=== PATIENT | female | born 1985 | race Caucasian/White ===

== ENCOUNTER 2018-08-05 13:13 | Emergency (ER) | payer BC, SELFPAY ==
[2018-08-05 13:32] VITALS: BP 107/74; PULSE 77; RESP 18; TEMP 36.7; O2SAT 98
--- NOTE | 2018-08-05 15:28 | PC.NURSE ---
Dime sized lesion with redness measuring about 4cm around.
--- NOTE | 2018-08-05 17:00 | ED.SKABFB ---
HPI - Skin/Abscess/Foreign Bdy <KEON Lau - Last Filed: 08/05/18 22:42> General Chief complaint: Skin/Abscess/Foreign Body Stated complaint: BOIL ON STOMACH Time Seen by Provider: 08/05/18 16:36 Source: patient Mode of arrival: ambulatory Limitations: no limitations History of Present Illness HPI narrative: Patient is a 32-year-old female current everyday smoker with history of drug and alcohol abuse who presents with a chief complaint of a boil on her stomach. she was seen at [facility] a few days ago was started on Keflex. She states that the redness around it has been getting worse and has been getting increasingly painful. Thus she is concerned she needs a different antibiotic. She complains of some chills but denies any fever. She states she has been staying home from her drug and alcohol rehab because of the pain of her boil. she has no nausea no vomiting. She has not taken anything for pain including Tylenol or ibuprofen. Related Data Home Medications Medication Instructions Recorded Confirmed cephalexin 1,000 mg PO BIDX10 08/05/18 08/05/18 fluoxetine 40 mg PO DAILY 08/05/18 08/05/18 fluticasone propionate [Flovent 1 puff INHALATION BID 08/05/18 08/05/18 HFA] prazosin 1 mg PO DAILY 08/05/18 08/05/18 quetiapine 100 mg PO DAILY 08/05/18 08/05/18 sumatriptan succinate 100 mg PO PRN PRN 08/05/18 08/05/18 venlafaxine 37.5 mg PO DAILY 08/05/18 Previous Rx's Medication Instructions Recorded doxycycline hyclate 100 mg PO BID #20 tab 08/05/18 Allergies Allergy/AdvReac Type Severity Reaction Status Date / Time medroxyprogesterone Allergy Mild Verified 08/05/18 15:35 [From Depo-Provera] Penicillins Allergy Mild Verified 08/05/18 15:34 Review of Systems <KEON Lau - Last Filed: 08/05/18 22:42> Review of Systems GENERAL: Denies chills, fatigue, malaise, fever, sweats. HEENT: Denies sinus pain, ear pain, sore throat, difficulty swallowing, dizziness. RESPIRATORY: Denies dyspnea, cough, wheezing, hemoptysis, sputum. CARDIOVASCULAR: Denies chest pain, palpitations, orthopnea, edema, GASTROINTESTINAL: Denies nausea, vomiting, abdominal pain, diarrhea, constipation, melena. : Denies dysuria, frequency, incontinence, hematuria, urinary retention. MUSCULOSKELETAL: denies weakness, joint pain, or bony pain SKIN: See HPI NEUROLOGIC: Denies weakness, headache, numbness, change in speech, confusion, seizures, incoordination. PSYCHIATRIC: No concerning psychosocial issues. 12 point review of systems is negative except for those stated above PFSH <KEON Lau - Last Filed: 08/05/18 22:42> Social History Smoking Status: Current every day smoker Social History Smoking Status: Current every day smoker Exam <KEON Lau - Last Filed: 08/05/18 22:42> Narrative Exam Narrative: GENERAL: This is a well-nourished, well-developed patient, layying on side HEAD: Atraumatic. Normocephalic. No temporal or scalp tenderness. EYES: Pupils equal round and reactive. Extraocular motions intact. No scleral icterus. No injection or drainage. ENT: Nose without bleeding, purulent drainage or septal hematoma. Throat without erythema, tonsillar hypertrophy or exudate. Uvula midline. Airway patent. NECK: Trachea midline. No JVD or lymphadenopathy. Supple, nontender, no meningeal signs. CARDIOVASCULAR: Regular rate and rhythm without murmurs, gallops, or rubs. RESPIRATORY: Clear to auscultation. Breath sounds equal bilaterally. No wheezes, rales, or rhonchi. GASTROINTESTINAL: Abdomen soft, non-tender, nondistended. No hepato-splenomegaly, or palpable masses. No guarding. EXTREMITIES: No clubbing, cyanosis, or edema. No joint tenderness, effusion, or edema noted. BACK: Nontender without deformity or crepitance. No flank tenderness. NEURO: AOx3. SKIN: 4 cm of erythema on abdomen to right of umbilicus. No palpable fluctuance. 4 mm area pustule in the center. No obvious drainage. Initial Vital Signs Initial Vital Signs: Vital Signs Temperature 98.1 F 08/05/18 13:32 Pulse Rate 77 08/05/18 13:32 Respiratory Rate 18 08/05/18 13:32 Blood Pressure 107/74 08/05/18 13:32 Pulse Oximetry 98 08/05/18 13:32 <Moy Coughlin DO - Last Filed: 08/13/18 23:53> Initial Vital Signs Initial Vital Signs: Vital Signs Temperature 98.1 F 08/05/18 13:32 Pulse Rate 77 08/05/18 13:32 Respiratory Rate 18 08/05/18 13:32 Blood Pressure 107/74 08/05/18 13:32 Pulse Oximetry 98 08/05/18 13:32 Course <KEON Lau - Last Filed: 08/05/18 22:42> Vital Signs - 8 hr 08/05/18 17:14 Pulse Rate 71 Respiratory Rate 20 Blood Pressure 102/76 Pulse Oximetry 98 <Moy Coughlin DO - Last Filed: 08/13/18 23:53> Vital Signs - 8 hr 08/05/18 17:14 Pulse Rate 71 Respiratory Rate 20 Blood Pressure 102/76 Pulse Oximetry 98 MDM - Skin/Abscess/Foreign Bdy <KEON Lau - Last Filed: 08/05/18 22:42> MDM Narrative Medical decision making narrative: The patient is a 32-year-old female who presents with a small abscess and surrounding erythema. I do not feel a palpable fluctuance Katalina M unable to drain anything at this point time. She was started on cephalexin 3 days ago. However I will expand her coverage to include MRSA with doxycycline. She is afebrile in the emergency department. She is not tachycardic, normotensive and nontoxic appearing. She declined Tylenol and ibuprofen for the pain. I encouraged her to follow up with primary care provider in the next few days as well as monitor for signs of systemic illness and be evaluated if any of these occur. A wound culture was obtained. No questions or concerns upon discharge. Discharge Plan Departure Patient Disposition: Home Clinical Impression: Abscess Cellulitis Qualifiers: Site of cellulitis: trunk Site of cellulitis of trunk: abdominal wall Qualified Code(s): L03.311 - Cellulitis of abdominal wall Discharge Date/Time: 08/05/18 17:15 Interventions: ED Discharge Assessment Last Done: 08/05/18 17:14 Instructions: DI for Cellulitis -- Adult, DI for Skin Abscess Activity Restrictions/Additional Instructions: I am adding doxycycline to her antibiotic regimen. Please use sun screen with this. Monitor for inability keep down fluids, spreading or worsening. Please be evaluated if you becomes sicker or develops fevers. Please follow up with primary care provider soon as possible. Prescriptions: New doxycycline hyclate 100 mg tablet 100 mg PO BID Qty: 20 RF: 0 No Action venlafaxine 37.5 mg capsule,extended release 24hr 37.5 mg PO DAILY RF: 0 sumatriptan succinate 100 mg tablet 100 mg PO PRN PRN (Reason: Migraine Headache) RF: 0 prazosin 1 mg capsule 1 mg PO DAILY RF: 0 fluoxetine 20 mg tablet 40 mg PO DAILY RF: 0 cephalexin 500 mg tablet 1,000 mg PO BIDX10 RF: 0 Flovent HFA 110 mcg/actuation HFA aerosol inhaler 1 puff Inhalation BID RF: 0 quetiapine 50 mg tablet 100 mg PO DAILY RF: 0 <Moy Coughlin, - Last Filed: 08/13/18 23:53> [facility] Attestation: I was immediately available in the department for consultation. Documentation has been reviewed. I agree with assessment and plan.
[2018-08-05 17:14] VITALS: BP 102/76; PULSE 71; RESP 20; O2SAT 98
== END 2018-08-05 17:15 | disposition home or self-care (01) ==
PROVIDERS: Emergency Provider Nurse Practitioner Family
DX: L02.211 Cutaneous abscess of abdominal wall (principal); L03.311 Cellulitis of abdominal wall
CPT/HCPCS: 99282; 99283

== ENCOUNTER 2018-09-28 20:09 | Emergency (ER) | payer BC, SELFPAY ==
[2018-09-28 20:10] VITALS: BP 116/74; PULSE 67; RESP 14; TEMP 36.5; O2SAT 100; BMI 33.2
--- NOTE | 2018-09-28 20:44 | DI.RAD.S_ITS ---
PROCEDURE: XR RIBS RT MIN 3V W CXR 1V INDICATIONS: Right lateral rib pain TECHNIQUE: 3 views of the right ribs were acquired, along with a single view chest. COMPARISON: None. FINDINGS: Surgical changes and devices: Port-A-Cath is present with distal tip projecting over the mid SVC. Cholecystectomy clips. Bones and chest wall: No fractures or dislocations. No suspicious bony lesions. Overlying soft tissues appear unremarkable. Lungs and pleura: No pleural effusions or pneumothorax. Lungs appear clear. Mediastinum: Mediastinal contours appear normal. Heart size is normal. IMPRESSION: No visualized acute fracture or dislocation. However, if clinical concern and/or pain persist, short interval imaging followup in 7-10 days is recommended, as occult injury cannot be definitively excluded. Dictated by: Anastasiia Winters M.D. on 09/28/2018 at 21:01 Approved by: Anastasiia Winters M.D. on 09/28/2018 at 21:01
--- NOTE | 2018-09-28 20:48 | ED_ITS ---
HPI - Chest Pain General Chief Complaint: Chest Pain Stated Complaint: CHEST PAIN RT ARM NUMBNESS KIDNEY INFECTION Time Seen by Provider: 09/28/18 20:22 Source: patient Mode of arrival: ambulatory Limitations: no limitations History of Present Illness HPI narrative: The patient developed right lateral rib pain about 2 hours ago. She has no cough, she has had no trauma. She has increased discomfort with breathing deeply. She has no hemoptysis. Pain is focused to the right anterior/lateral ribs. She has no prior injury at the site. She does have back pain. She has been experiencing UTI symptoms for over a week. She was most recently started on Macrobid, she was previously on Keflex. The last medication was initiated after an ER visit to a different hospital/ER. She has had no call back regarding sensitivities from the culture. She also has a history of left kidney stone. She denies left abdominal pain. She denies hematuria. She is having no fever or chills. She also has no productive cough. She is not a cigarette smoker. She has no history of asthma. Related Data Home Medications Medication Instructions Recorded Confirmed cephalexin 1,000 mg PO BIDX10 08/05/18 08/05/18 fluoxetine 40 mg PO DAILY 08/05/18 08/05/18 fluticasone propionate [Flovent 1 puff INHALATION BID 08/05/18 08/05/18 HFA] prazosin 1 mg PO DAILY 08/05/18 08/05/18 quetiapine 100 mg PO DAILY 08/05/18 08/05/18 sumatriptan succinate 100 mg PO PRN PRN 08/05/18 08/05/18 venlafaxine 37.5 mg PO DAILY 08/05/18 Previous Rx's Medication Instructions Recorded doxycycline hyclate 100 mg PO BID #20 tab 08/05/18 Allergies Allergy/AdvReac Type Severity Reaction Status Date / Time medroxyprogesterone Allergy Mild Verified 08/05/18 15:35 [From Depo-Provera] Penicillins Allergy Mild Verified 08/05/18 15:34 ondansetron [From Zofran] AdvReac Severe Vomiting Verified 09/28/18 20:32 Review of Systems Review of Systems ROS Unobtainable: All systems reviewed & are unremarkable except as noted in HPI and below Constitutional Denies chills, Denies fever(s), Denies lethargy and Denies weakness ENT Ears, Nose, Mouth, and Throat: Denies nasal congestion, Denies neck pain and Denies sore throat Cardiovascular Reports chest pain (Right chest), Denies irregular heart rhythm, Denies lightheadedness, Denies palpitations, Denies dyspnea and Denies orthopnea Respiratory Denies cough, Denies dyspnea and Denies wheezing Gastrointestinal Gastrointestinal: Denies abdominal pain, Denies change in bowel habits, Denies diarrhea, Denies nausea and Denies vomiting Genitourinary Denies hematuria, Denies dysuria, Denies flank pain and Denies urinary urgency Musculoskeletal Reports back pain and Denies neck pain Integumentary/Breasts Denies erythema and Denies rash Neurologic Denies weakness Endocrine Denies palpitations Allergic/Immunologic Denies wheezing [facility] Medical History Depression (Acute) Frequent headaches (Acute) Surgical History (Updated 09/29/18 @ 03:06 by Emmanuel Ludwig MD) No pertinent past surgical history (Acute) Social History (Updated 09/29/18 @ 03:07 by Emmanuel Ludwig MD) Smoking Status: Never smoker Social History (Updated 09/29/18 @ 03:07 by Emmanuel Ludwig MD) Smoking Status: Never smoker Exam Initial Vital Signs Initial Vital Signs: Vital Signs Temperature 97.7 F 09/28/18 20:10 Pulse Rate 67 09/28/18 20:10 Respiratory Rate 14 09/28/18 20:10 Blood Pressure 116/74 09/28/18 20:10 Pulse Oximetry 100 09/28/18 20:10 Const General: cooperative and well developed Nutritional Appearance: well nourished Orientation: alert, awake, oriented x3 and not confused [facility] Head: normocephalic and atraumatic Ears: external ears normal and TM's normal bilaterally Nose: external nose normal and No nasal discharge Face and sinus: sinuses nontender, face symmetric, no sinus tenderness and No dry mucous membranes Mouth: oral mucosae normal and moist mucous membranes Teeth and gingiva: dentition normal Throat: tonsils normal and uvula midline Eyes General: appearance normal, both eyes and all related structures Eyelids: eyelids normal Conjunctivae: conjunctivae normal Sclera: sclerae normal Pupils: PERRL EOM: EOM intact bilaterally Neck Neck: normal visual inspection, trachea midline, No lymphadenopathy, No midline deformity and No JVD Lymphatic: No lymphedema Chest Chest: normal inspection of the chest, No crepitus and localized rib tenderness with anteroposterior compression Resp Effort & Inspection: normal respiratory effort and able to speak in complete sentences Auscultation: clear to auscultation bilaterally, no rales, no rhonchi and no wheezes Cardio Rate: regular rate Rhythm: regular rhythm Heart Sounds: no click, no gallops, no murmurs and no rubs Pulses: normal peripheral pulses GI Inspection: non-distended Palpation: soft, no hepatosplenomegaly, No guarding, No pulsatile mass and No tender Auscultation: normal bowel sounds Back/Spine/Pelvis Back: No CVA tenderness Cervical Spine: cervical ROM normal Thoracic/Lumbar Spine: thoracic and lumbar spine normal to inspection and other (Tenderness in the area of the right kidney, not obvious CVAT) Skin General: no rashes or lesions noted, No jaundice and No petechiae Neuro General: alert, oriented x3, gait normal and no focal motor deficits Speech: speech normal Extrem General: full ROM, no pedal edema and no calf tenderness Course Course Narrative: The patient was started on ibuprofen for chest wall pain and back pain prior to discharge. Orders Ordered: ED Orders 09/28/18 20:44 XR ribs RT min 3V w CXR1V Stat 09/28/18 21:30 Comprehensive Metabolic Panel Stat Lipase Stat 09/28/18 21:39 Urine Microscopic Stat 09/28/18 21:55 Complete Blood Count AUTO DIFF Stat Vital Signs - 8 hr 09/29/18 00:40 09/29/18 01:04 09/29/18 02:27 Pulse Rate 74 63 63 Respiratory Rate 14 14 16 Blood Pressure [Left Arm] 116/76 123/86 116/80 Pulse Oximetry 97 100 94 09/29/18 03:00 Pulse Rate 65 Respiratory Rate 16 Blood Pressure [Left Arm] 110/78 Pulse Oximetry 100 MDM - Chest Pain Lab Data Result diagrams: 09/28/18 21:55 09/28/18 21:30 Lab Results 09/28/18 09/28/18 09/28/18 Range/Units 21:30 21:39 21:55 WBC 8.8 (4.5-11.0) X10^3/uL RBC 4.40 (4.0-5.2) X10^6/uL Hgb 13.1 (12.0-16.0) g/dL Hct 37.9 (36-46) % MCV 86.0 (80-100) fL MCH 29.7 (26-34) PG MCHC 34.5 (30-36) % RDW 13.0 (11.6-14.8) % Plt Count 233 (150-400) X10^3/uL Neut % (Auto) 57.6 (50-75) % Lymph % (Auto) 34.0 (25-40) % [place] % (Auto) 5.4 (3-14) % Eos % (Auto) 2.2 (2-4) % Baso % (Auto) 0.8 (0-2) % Neut # (Auto) 5000 (0242-3325) /uL Lymph # (Auto) 3000 (4233-6935) /uL [place] # (Auto) 500 (0-900) /uL Eos # (Auto) 200 (0-450) /uL Baso # (Auto) 100 (0-100) /uL Sodium 138 (137-145) mmol/L Potassium 4.4 (3.4-5.1) mmol/L Chloride 105 (98-107) mmol/L Carbon Dioxide 24 (22-32) mmol/L BUN 13 (7-17) mg/dL Creatinine 0.50 L (0.52-1.04) mg/dL Estimated GFR > 60.0 (>60) mL/min BUN/Creatinine Ratio 26.0 H (6-22) Glucose 84 (70-100) mg/dL Calcium 9.5 (8.4-10.2) mg/dL Total Bilirubin 0.7 (0.2-1.3) mg/dL AST 26 (14-36) IU/L ALT 30 (9-52) IU/L Alkaline Phosphatase 88 (38-126) U/L Total Protein 7.5 (6.3-8.2) g/dL Albumin 4.3 (3.5-5.0) g/dL Globulin 3.2 (1.7-4.1) g/dL Albumin/Globulin Ratio 1.3 (1.0-2.8) Lipase 170 (23-300) U/L Urine RBC None seen (0-5/HPF) Urine WBC 0-1/hpf (0-5/HPF) Urine Bacteria None seen (None) Ur Culture Indicated? Cult not indicated Imaging Data CXR/right ribs:: My impression: Normal PA CXR. Normal rib x-rays. Discharge Plan Departure Patient Disposition: Home Clinical Impression: Pain in rib Discharge Date/Time: 09/29/18 03:30 Interventions: ED Discharge Assessment Last Done: 09/29/18 03:28 Instructions: DI for Atypical Chest Pain Activity Restrictions/Additional Instructions: Urine sample is clear, there is no evidence of a UTI at this time. The pain in your back is probably not from your kidneys, probably from muscle pain. X-rays do not show any problems with her ribs or kidneys. This pain is somehow associated with her ribs, chest muscles. Advil 3 times daily for both problems. Return here as needed. Prescriptions: No Action venlafaxine 37.5 mg capsule,extended release 24hr 37.5 mg PO DAILY RF: 0 sumatriptan succinate 100 mg tablet 100 mg PO PRN PRN (Reason: Migraine Headache) RF: 0 prazosin 1 mg capsule 1 mg PO DAILY RF: 0 fluoxetine 20 mg tablet 40 mg PO DAILY RF: 0 cephalexin 500 mg tablet 1,000 mg PO BIDX10 RF: 0 Flovent HFA 110 mcg/actuation HFA aerosol inhaler 1 puff Inhalation BID RF: 0 quetiapine 50 mg tablet 100 mg PO DAILY RF: 0 doxycycline hyclate 100 mg tablet 100 mg PO BID Qty: 20 RF: 0
[2018-09-28 21:30] VITALS: BP 111/80
[2018-09-28 21:35] VITALS: PULSE 67; RESP 15; O2SAT 99
[2018-09-28 21:40] LABS: Bacteria Urine None Seen; RBC Urine None Seen (0-5/HPF)
[2018-09-28 21:52] LABS: Alanine Aminotransferase 30 IU/L (9-52); Albumin 4.3 g/dL (3.5-5.0); Albumin Globulin Ratio 1.3 (1.0-2.8); Alkaline Phosphatase 88 U/L (38-126); Aspartate Aminotransferase 26 IU/L (14-36); Bilirubin Total 0.7 mg/dL (0.2-1.3); Blood Urea Nitrogen 13 mg/dL (7-17); Calcium 9.5 mg/dL (8.4-10.2); Carbon Dioxide 24 mmol/L (22-32); Chloride 105 mmol/L (98-107); Estimated Glomerular Filt Rate > 60.0 mL/min (>60); Globulin 3.2 g/dL (1.7-4.1); Glucose 84 mg/dL (70-100); Lipase 170 U/L (23-300); Sodium 138 mmol/L (137-145); Total Protein 7.5 g/dL (6.3-8.2)
[2018-09-28 21:53] LABS: HEMOLYSIS 69 (0-50)
[2018-09-28 21:53] LABS: Culture Indicated Urine Cult Not Indicated; WBC Urine 0-1/HPF (0-5/HPF)
[2018-09-28 21:54] LABS: Potassium 4.4 mmol/L (3.4-5.1)
[2018-09-28 22:03] LABS: Add Manual Diff / Slide Review NO; Basophils Absolute Auto 100 /uL (0-100); Basophils Percent Auto 0.8 % (0-2); Eosinophils Absolute Auto 200 /uL (0-450); Eosinophils Percent Auto 2.2 % (2-4); Hematocrit 37.9 % (36-46); Hemoglobin 13.1 g/dL (12.0-16.0); Lymphocytes Absolute Auto 3000 /uL (1100-4500); Mean Corpuscular HGB Conc 34.5 % (30-36); Mean Corpuscular Hemoglobin 29.7 PG (26-34); Monocytes Absolute Auto 500 /uL (0-900); Monocytes Percent Auto 5.4 % (3-14); Neutrophils Absolute Auto 5000 /uL (1500-7000); Neutrophils Percent Auto 57.6 % (50-75); Platelet Count 233 X10^3/uL (150-400); White Blood Cell Count 8.8 X10^3/uL (4.5-11.0)
[2018-09-28 22:53] VITALS: BP 117/68; PULSE 67; RESP 19; O2SAT 98
[2018-09-29 00:40] VITALS: BP 116/76; PULSE 74; RESP 14; O2SAT 97
[2018-09-29 01:04] VITALS: BP 123/86; PULSE 63; RESP 14; O2SAT 100
[2018-09-29 02:27] VITALS: BP 116/80; PULSE 63; RESP 16; O2SAT 94
[2018-09-29 03:00] VITALS: BP 110/78; PULSE 65; RESP 16; O2SAT 100
== END 2018-09-29 03:30 | disposition home or self-care (01) ==
PROVIDERS: Emergency Provider Emergency Medicine
DX: R07.81 Pleurodynia (principal); R20.0 Anesthesia of skin; M54.9 Dorsalgia, unspecified
CPT/HCPCS: 36415; 71101; 80053; 81015; 83690; 85025; 93005; 93010; 99283; 99284

== ENCOUNTER 2018-10-12 16:48 | Emergency (ER) | payer BC, SELFPAY ==
[2018-10-12 16:50] VITALS: BP 109/74; PULSE 85; RESP 14; TEMP 36.7; O2SAT 97
--- NOTE | 2018-10-12 16:57 | DI.RAD.S_ITS ---
PROCEDURE: XR SHOULDER RT MIN 2V INDICATIONS: trauma to shoulder, previous surgery TECHNIQUE: 3 views of the shoulder were acquired. COMPARISON: [facility], CR, XR RIBS RT MIN 3V W CXR 1V, 09/28/2018, 20:46. FINDINGS: Bones: No fractures or dislocations. No suspicious bony lesions. Visualized ribs appear intact. Soft tissues: No suspicious soft tissue calcifications. There is a right-sided chest port seen. The visualized lung demonstrates an unremarkable appearance. IMPRESSION: No significant plain film abnormality is seen. Right-sided chest port noted. Dictated by: Manjeet Bowen M.D. on 10/12/2018 at 16:21 Approved by: Manjeet Bowen M.D. on 10/12/2018 at 16:22
--- NOTE | 2018-10-12 18:36 | ED.UPPEXIN ---
HPI - Extremity Injury (Upper) <REMBERTO Lau-BC - Last Filed: 10/12/18 20:42> General Chief Complaint: Extremity Injury, Upper Stated Complaint: INJURY RIGHT SHOULDER Time Seen by Provider: 10/12/18 17:18 Source: patient Mode of arrival: ambulatory Limitations: no limitations History of Present Illness HPI narrative: The patient is a 32-year-old female nonsmoker with history of cellulitis who presents with chief complaint of right shoulder pain. The patient states she dropped 150 lb of wound on her right shoulder. She states she has a history of shoulder surgery in the past. She has taken Tylenol and ibuprofen at 7:30 a.m. this morning. States that hurts to move, but she can move. Denies any neck or back or spinal pain. She denies any other injury from this incident. This happened yesterday. She denies any bruising. Related Data Home Medications Medication Instructions Recorded Confirmed prazosin 1 mg PO DAILY 08/05/18 10/12/18 quetiapine 100 mg PO DAILY 08/05/18 10/12/18 venlafaxine 37.5 mg PO DAILY 08/05/18 10/12/18 lamotrigine 1 tab PO DAILY 10/12/18 10/12/18 Allergies Allergy/AdvReac Type Severity Reaction Status Date / Time medroxyprogesterone Allergy Severe Hives Verified 10/12/18 16:57 [From Depo-Provera] ondansetron [From Zofran] Allergy Severe Vomiting Verified 10/12/18 16:57 Review of Systems <RUDDY Lau - Last Filed: 10/12/18 20:42> Review of Systems GENERAL: Denies chills, fatigue, malaise, fever, sweats. HEENT: Denies sinus pain, ear pain, sore throat, difficulty swallowing, dizziness. RESPIRATORY: Denies dyspnea, cough, wheezing, hemoptysis, sputum. CARDIOVASCULAR: Denies chest pain, palpitations, orthopnea, edema, GASTROINTESTINAL: Denies nausea, vomiting, abdominal pain, diarrhea, constipation, melena. : Denies dysuria, frequency, incontinence, hematuria, urinary retention. MUSCULOSKELETAL: See HPI SKIN: See HPI NEUROLOGIC: Denies weakness, headache, numbness, change in speech, confusion, seizures, incoordination. PSYCHIATRIC: No concerning psychosocial issues. 12 point review of systems is negative except for those stated above PFSH <KEON Lau - Last Filed: 10/12/18 20:42> Medical History Depression (Acute) Frequent headaches (Acute) Surgical History No pertinent past surgical history (Acute) Social History (Updated 09/29/18 @ 03:07 by Emmanuel Ludwig MD) Smoking Status: Never smoker Social History Smoking Status: Never smoker Exam <KEON Lau - Last Filed: 10/12/18 20:42> Narrative Exam Narrative: GENERAL: This is a well-nourished, well-developed patient, in no acute distress HEAD: Atraumatic. Normocephalic. No temporal or scalp tenderness. EYES: Pupils equal round and reactive. Extraocular motions intact. No scleral icterus. No injection or drainage. ENT: Nose without bleeding, purulent drainage or septal hematoma. Throat without erythema, tonsillar hypertrophy or exudate. Uvula midline. Airway patent. NECK: Trachea midline. No JVD or lymphadenopathy. Supple, nontender, no meningeal signs. CARDIOVASCULAR: Regular rate and rhythm RESPIRATORY: No cough. No increased respiratory effort. No accessory muscle use. No stridor. GASTROINTESTINAL: Abdomen soft, non-tender, nondistended. No hepato-splenomegaly, or palpable masses. No guarding. EXTREMITIES: General pain to palpation right shoulder. Patient is able to extend right shoulder to 90?. Positive right radial pulse. BACK: Nontender without deformity or crepitance. No flank tenderness. No pain to C-spine or spinal palpation. NEURO: AOx3. SKIN: No rash erythema ecchymosis or abrasion or other abnormality noted right shoulder Initial Vital Signs Initial Vital Signs: Vital Signs Temperature 98.1 F 10/12/18 16:50 Pulse Rate 85 10/12/18 16:50 Respiratory Rate 14 10/12/18 16:50 Blood Pressure 109/74 10/12/18 16:50 Pulse Oximetry 97 10/12/18 16:50 <Brenda Clay DO - Last Filed: 10/14/18 07:24> Initial Vital Signs Initial Vital Signs: Vital Signs Temperature 98.1 F 10/12/18 16:50 Pulse Rate 85 10/12/18 16:50 Respiratory Rate 14 10/12/18 16:50 Blood Pressure 109/74 10/12/18 16:50 Pulse Oximetry 97 10/12/18 16:50 Course <KEON Lau - Last Filed: 10/12/18 20:42> Orders Ordered: Discontinued Medications Ketorolac Tromethamine (Toradol) 60 mg IM NOW ONE Stop: 10/12/18 18:36 Last Admin: 10/12/18 18:39 Dose: 60 mg Vital Signs - 8 hr 10/12/18 16:50 10/12/18 19:09 Temperature 98.1 F Pulse Rate 85 57 L Respiratory Rate 14 Blood Pressure 109/74 112/78 Pulse Oximetry 97 <Brenda Clay DO - Last Filed: 10/14/18 07:24> Orders Ordered: Discontinued Medications Ketorolac Tromethamine (Toradol) 60 mg IM NOW ONE Stop: 10/12/18 18:36 Last Admin: 10/12/18 18:39 Dose: 60 mg Vital Signs - 8 hr 10/12/18 16:50 10/12/18 19:09 Temperature 98.1 F Pulse Rate 85 57 L Respiratory Rate 14 Blood Pressure 109/74 112/78 Pulse Oximetry 97 MDM - Extremity Injury (Upper) <KEON Lau - Last Filed: 10/12/18 20:42> Imaging Data Shoulder x-ray: Radiologist's impression: [address] [address] XRay Report Signed Patient: Jadyn Park RMR#: [id number] : 1985Acct:[id number] Age/Sex: 32 / FDate of Service: 10/12/18 Loc: ED Accession Number: [id number] Procedure: XR shoulder RT min 2V Ordering Provider: Brenda Clay D.O. PROCEDURE: XR SHOULDER RT MIN 2V INDICATIONS: trauma to shoulder, previous surgery TECHNIQUE: 3 views of the shoulder were acquired. COMPARISON: [facility], CR, XR RIBS RT MIN 3V W CXR 1V, 09/28/2018, 20:46. FINDINGS: Bones: No fractures or dislocations. No suspicious bony lesions. Visualized ribs appear intact. Soft tissues: No suspicious soft tissue calcifications. There is a right-sided chest port seen. The visualized lung demonstrates an unremarkable appearance. IMPRESSION: No significant plain film abnormality is seen. Right-sided chest port noted. Dictated by: Manjeet Bowen M.D. on 10/12/2018 at 16:21 Approved by: Manjeet Bowen M.D. on 10/12/2018 at 16:22 MDM Narrative Medical decision making narrative: The patient is a 32-year-old female who presents with chief complaint of shoulder pain. She has a negative x-ray. She is neurovascularly intact. I discussed at length rest ice compression elevation as well as [id number] pain medications as needed and able. She was given Toradol in the emergency department. I discussed that x-ray does not rule out soft tissue injury. She declined any further range of motion exam. Encouraged her to follow up with primary care provider gave her contact information for the health water resource project manager. Discussed going back to the emergency department for any acute concerns such as chest pain shortness of breath etc. Patient has no questions or concerns upon discharge. Discharge Plan Departure Patient Disposition: Home Clinical Impression: Acute pain of right shoulder Discharge Date/Time: 10/12/18 19:10 Interventions: ED Discharge Assessment Last Done: 10/12/18 19:09 Instructions: How To Perform RICE (Rest, Ice, Compress, Elevate), DI for Shoulder Pain Activity Restrictions/Additional Instructions: Your x-ray shows no fractures today. Please continue [id number] medications as needed and able. Please rest and ice your shoulder as well. I had given you contact information for the health water resource project manager, who can help you identified primary care physician. Please follow up with a PCP as you may need further imaging and or physical therapy. Please come back to the emergency department for any acute concerns such as chest pain, shortness of breath, concern of heart attack stroke Prescriptions: No Action venlafaxine 37.5 mg capsule,extended release 24hr 37.5 mg PO DAILY RF: 0 prazosin 1 mg capsule 1 mg PO DAILY RF: 0 quetiapine 50 mg tablet 100 mg PO DAILY RF: 0 lamotrigine 25 mg tablet 1 tab PO DAILY RF: 0 Referrals: [facility] [Outside] <Brenda Clay DO - Last Filed: 10/14/18 07:24> Cosign ED Attending Cosignature Attestation: I was immediately available in the department for consultation. This documentation has been reviewed and I agree with assessment and plan. Supervised by Brenda Clay DO
[2018-10-12] MEDS: KETOROLAC 60 MG/2 ML VIAL IM (18:39)
[2018-10-12 19:09] VITALS: BP 112/78; PULSE 57
== END 2018-10-12 19:10 | disposition home or self-care (01) ==
PROVIDERS: Emergency Provider Nurse Practitioner Family
DX: M25.511 Pain in right shoulder (principal)
CPT/HCPCS: 73030; 96372; 99282; 99283; J1885